=== PATIENT | female | born 1960 | race Caucasian/White ===

== ENCOUNTER 2020-01-25 01:53 | Emergency (ER) | payer MEDICARE, MEDICAID ==
[~2020-01-25] VITALS: Ht 165.1 cm; Wt 77.1 kg
[2020-01-25 02:37] LABS: Basophils # (auto) 0 10 ^3/uL (0-0.2); Basophils % (auto) 0.6 % (0.0-2.0); Eosinophils # (auto) 0.4 10 ^3/uL (0-0.8); Eosinophils % (auto) 5.3 % (0.0-7.0); Hematocrit 36.5 % (36.0-46.0); Hemoglobin 12.5 g/dL (12.2-16.2); Lymphocytes # (auto) 2.7 10 ^3/uL (0.4-5.4); Lymphocytes % (auto) 36.3 % (10.0-50.0); Mean Corpuscular Hemoglobin 31.2 pg (28.0-32.0); Mean Corpuscular Hgb Conc. 34.2 g/dL (32.0-36.0); Mean Corpuscular Volume 91.2 fL (80.0-100.0); Monocytes # (auto) 0.5 10 ^3/uL (0-1.3); Monocytes % (auto) 7.4 % (0.0-12.0); Neutrophils # (auto) 3.7 10 ^3/uL (1.6-8.6); Neutrophils % (auto) 50.4 % (37.0-80.0); Nucleated Red Blood Cells % 0.1 %; Platelet Count (auto) 222 10^3/uL (140-450); White Blood Cell 7.4 10^3/uL (4.4-10.8)
[2020-01-25 02:52] LABS: INR 0.97 (0.9-1.15); Partial Thromboplastin Time 24.9 sec (23.0-31.2)
[2020-01-25 02:54] LABS: Albumin 3.2 g/dL (3.4-5.0); Anion Gap 2 (5-15); Blood Urea Nitrogen 13 mg/dL (7-18); Calcium 8.5 mg/dL (8.5-10.1); Carbon Dioxide 28 mmol/L (21-32); Chloride 111 mmol/L (98-107); Glucose 139 mg/dL (74-106); Potassium 5.2 mmol/L (3.5-5.1); Sodium 141 mmol/L (136-145)
[2020-01-25 03:01] LABS: Alanine Aminotransferase 29 U/L (13-56); Alkaline Phosphatase 169 U/L (45-117); Aspartate Aminotransferase 25 U/L (15-37); BUN/Creatinine Ratio 12.1; Bilirubin, Total 0.2 mg/dL (0.2-1.0); GFR African American 68 mL/min; GFR Non-African American 56 mL/min; Total Protein 6.5 g/dL (6.4-8.2)
[2020-01-25 04:00] VITALS: BP 112/66
== END 2020-01-25 05:34 | disposition home or self-care (01) ==
LOC: ER 01:56
DX: R07.89 Other chest pain (principal); K21.0 Gastro-esophageal reflux disease with esophagitis; G89.29 Other chronic pain; M54.5 Low back pain; I10 Essential (primary) hypertension; E78.5 Hyperlipidemia, unspecified; F17.210 Nicotine dependence, cigarettes, uncomplicated
CPT/HCPCS: 36415; 71045; 80053; 83880; 84484; 85025; 85379; 85610; 85730

== ENCOUNTER 2021-06-25 13:28 | Emergency (ER) | payer MEDICARE, MEDICAID ==
[~2021-06-25] VITALS: Ht 167.6 cm; Wt 68.0 kg
[2021-06-25 15:00] LABS: Albumin 2.8 g/dL (3.4-5.0); BUN/Creatinine Ratio 13.6; Potassium 3.4 mmol/L (3.5-5.1)
[2021-06-25 15:03] LABS: Bilirubin, Total 0.3 mg/dL (0.2-1.0); Total Protein 6.1 g/dL (6.4-8.2)
[2021-06-25 15:05] LABS: Basophils # (auto) 0.1 10 ^3/uL (0-0.2); Basophils % (auto) 1.3 % (0.0-2.0); Eosinophils # (auto) 0 10 ^3/uL (0-0.8); Eosinophils % (auto) 0.5 % (0.0-7.0); Hematocrit 36.2 % (36.0-46.0); Hemoglobin 12.2 g/dL (12.2-16.2); Lymphocytes # (auto) 0.6 10 ^3/uL (0.4-5.4); Lymphocytes % (auto) 14.7 % (10.0-50.0); Mean Corpuscular Hemoglobin 30.3 pg (28.0-32.0); Mean Corpuscular Hgb Conc. 33.8 g/dL (32.0-36.0); Mean Corpuscular Volume 89.6 fL (80.0-100.0); Monocytes # (auto) 0.3 10 ^3/uL (0-1.3); Monocytes % (auto) 7.7 % (0.0-12.0); Neutrophils # (auto) 3.3 10 ^3/uL (1.6-8.6); Neutrophils % (auto) 75.8 % (37.0-80.0); Nucleated Red Blood Cells % 0.2 %; Red Blood Cells 4.04 10^6/uL (4.0-5.20); Red Cell Distribution Width 13.4 % (11.8-14.3); White Blood Cell 4.3 10^3/uL (4.4-10.8)
[2021-06-25] MEDS ORDERED: ASPirin 325 MG TAB PO ONE (20:00)
[2021-06-25] MEDS ORDERED: FAMOTIDINE 20 MG TAB PO ONE (21:00)
[2021-06-25] MEDS ORDERED: ONDANSETRON HCL 4 MG/2 ML VIAL IV ONE (21:00)
[2021-06-25] MEDS ORDERED: ACETAMINOPHEN 325 MG TAB PO ONE (21:00)
[2021-06-25] MEDS ORDERED: KETOROLAC TROMETH 30 MG/ML 1ML VIAL IV ONE (21:00)
[2021-06-25] MEDS ORDERED: ALUM & MAG HYDROX-SIMETH LIQ(MAALOX) 30 ML PO ONE (21:00)
[2021-06-25 21:13] LABS: Urine Bacteria MANY /hpf (None Seen); Urine Blood Negative /uL (Negative); Urine Hyaline Cast FEW /lpf (0 - 2); Urine Mucus FEW (None Seen); Urine Specific Gravity 1.022 (1.001-1.035); Urine WBC 6 /hpf (0 - 5)
[2021-06-25] MEDS ORDERED: POTASSIUM EFFERVESENT TAB 25 MEQ PO ONE (21:15)
[2021-06-25 22:12] VITALS: BP 117/78
[2021-06-25] MEDS ORDERED: CEPH-322 PO (23:10)
== END 2021-06-25 23:34 | disposition home or self-care (01) ==
LOC: ER 13:28 → EDBD 13:28 → ER 23:34
DX: U07.1 COVID-19 (principal); R19.7 Diarrhea, unspecified; N39.0 Urinary tract infection, site not specified; I10 Essential (primary) hypertension; E78.5 Hyperlipidemia, unspecified; F17.210 Nicotine dependence, cigarettes, uncomplicated; Z86.73 Personal history of transient ischemic attack (TIA), and cerebral infarction without residual deficits
CPT/HCPCS: 36415; 71045; 80053; 81001; 83690; 84484; 85025; 87426; 93005; 96374; 99285; J1885; J2405

== ENCOUNTER 2021-08-12 13:27 | Inpatient (IN) | payer MEDICARE, MEDICAID ==
[~2021-08-12] VITALS: Ht 152.4 cm; Wt 67.4 kg
[~2021-08-12 13:27] MED LIST: CEPH-322 PO
[2021-08-12] MEDS ORDERED: PROMETHAZINE HCL 25 MG/ML 1ML ONE (13:43)
[2021-08-12] MEDS ORDERED: PROMETHAZINE HCL 25 MG/ML 1ML IV ONE ×2 (14:00→22:00)
[2021-08-12 14:47] LABS: Basophils % (auto) 0.6 % (0.0-2.0); Lymphocytes % (auto) 10.7 % (10.0-50.0); Monocytes % (auto) 2.4 % (0.0-12.0); Neutrophils % (auto) 86.3 % (37.0-80.0); White Blood Cell 9.9 10^3/uL (4.4-10.8)
[2021-08-12 14:48] LABS: Basophils # (auto) 0.1 10 ^3/uL (0-0.2); Eosinophils # (auto) 0 10 ^3/uL (0-0.8); Hematocrit 40.9 % (36.0-46.0); Hemoglobin 13.8 g/dL (12.2-16.2); Lymphocytes # (auto) 1.1 10 ^3/uL (0.4-5.4); Mean Corpuscular Hemoglobin 30.3 pg (28.0-32.0); Mean Corpuscular Hgb Conc. 33.8 g/dL (32.0-36.0); Mean Corpuscular Volume 89.7 fL (80.0-100.0); Monocytes # (auto) 0.2 10 ^3/uL (0-1.3); Neutrophils # (auto) 8.6 10 ^3/uL (1.6-8.6); Red Blood Cells 4.56 10^6/uL (4.0-5.20); Red Cell Distribution Width 13.7 % (11.8-14.3)
[2021-08-12 14:52] LABS: Albumin 3.4 g/dL (3.4-5.0); Calcium 9.3 mg/dL (8.5-10.1); Potassium 4.4 mmol/L (3.5-5.1)
[2021-08-12 14:54] LABS: BUN/Creatinine Ratio 10.3
[2021-08-12 14:58] LABS: Bilirubin, Total 0.3 mg/dL (0.2-1.0); Total Protein 7.1 g/dL (6.4-8.2)
[2021-08-12 15:59] LABS: Lactic Acid w/Reflex 2.2 mmol/L (0.4-2.0)
[2021-08-12] MEDS ORDERED: LORazepam 2MG/ML-1ML VIAL IV ONE (17:30)
[2021-08-12] MEDS ORDERED: IOHEXOL 300 MG/ML 100ML BOTTLE IJ ONE (19:11)
[2021-08-12 20:31] LABS: Albumin 3.3 g/dL (3.4-5.0); BUN/Creatinine Ratio 10.8; Calcium 9.1 mg/dL (8.5-10.1); Potassium 3.5 mmol/L (3.5-5.1)
[2021-08-12 20:34] LABS: Bilirubin, Total 0.2 mg/dL (0.2-1.0); Total Protein 6.7 g/dL (6.4-8.2)
[2021-08-12] MEDS ORDERED: cefTRIAXone 1GM/50ML D5W 50 ML IV ONE (21:15)
[2021-08-12] MEDS ORDERED: ONDANSETRON HCL 4 MG/2 ML VIAL ONE (21:19)
[2021-08-12] MEDS ORDERED: ONDANSETRON HCL 4 MG/2 ML VIAL IV ONE (21:30)
[2021-08-12 22:16] LABS: Urine Bacteria FEW /hpf (None Seen); Urine Blood Negative /uL (Negative); Urine Mucus FEW (None Seen); Urine Specific Gravity > 1.055 (1.001-1.035); Urine WBC <1 /hpf (0 - 5)
[2021-08-12 22:28] LABS: Amphetamine Screen, Urine NEGATIVE (NEGATIVE); Barbiturate Scree,Urine NEGATIVE (NEGATIVE); Benzodiazephine Screen, Urine POSITIVE (NEGATIVE); Cannabinoid Screen, Urine NEGATIVE (NEGATIVE); Cocaine Screen, Urine NEGATIVE (NEGATIVE)
[2021-08-12 22:36] LABS: Opiate Scree,Urine POSITIVE (NEGATIVE); Phencyclidine Screen, Urine NEGATIVE (NEGATIVE)
[2021-08-12 23:23] VITALS: BP 119/64
[2021-08-13] MEDS: ONDANSETRON HCL 4 MG/2 ML VIAL IV PRN ×2 (01:36→09:45)
[2021-08-13 04:45] VITALS: BP 115/61
[2021-08-13 06:18] LABS: Basophils # (auto) 0 10 ^3/uL (0-0.2); Basophils % (auto) 0.3 % (0.0-2.0); Eosinophils # (auto) 0 10 ^3/uL (0-0.8); Hematocrit 36.3 % (36.0-46.0); Hemoglobin 12.5 g/dL (12.2-16.2); Lymphocytes # (auto) 1.6 10 ^3/uL (0.4-5.4); Lymphocytes % (auto) 12.5 % (10.0-50.0); Mean Corpuscular Hemoglobin 30.3 pg (28.0-32.0); Mean Corpuscular Hgb Conc. 34.4 g/dL (32.0-36.0); Mean Corpuscular Volume 88.1 fL (80.0-100.0); Monocytes # (auto) 0.5 10 ^3/uL (0-1.3); Monocytes % (auto) 3.9 % (0.0-12.0); Neutrophils # (auto) 10.6 10 ^3/uL (1.6-8.6); Neutrophils % (auto) 83.3 % (37.0-80.0); Nucleated Red Blood Cells % 0.1 %; Red Blood Cells 4.12 10^6/uL (4.0-5.20); Red Cell Distribution Width 13.9 % (11.8-14.3); White Blood Cell 12.7 10^3/uL (4.4-10.8)
[2021-08-13 06:30] LABS: Calcium 9.5 mg/dL (8.5-10.1); Potassium 3.9 mmol/L (3.5-5.1)
[2021-08-13 06:33] LABS: BUN/Creatinine Ratio 11.4
[2021-08-13 09:00] VITALS: BP 101/60
[2021-08-13] MEDS: cefTRIAXone 1GM/50ML D5W 50 ML IV SCH (09:22)
[2021-08-13] MEDS: ENOXAPARIN SOD 40 MG/0.4 ML SYRINGE SC SCH (09:23)
[2021-08-13] MEDS ORDERED: PHENYTOIN SODIUM 100 MG CAP PO SCH (10:00)
[2021-08-13] MEDS ORDERED: PANTOPRAZOLE 40 MG/10 ML VIAL INJ IV ONE (11:00)
[2021-08-13] MEDS ORDERED: PHENYTOIN IV DILANTIN 500 MG in SODIUM CHL 0.9% 100 ML IV ONE (11:00)
[2021-08-13 12:53] VITALS: BP 104/48
[2021-08-13] MEDS ORDERED: SOD CHL 0.45% WITH 20MEQ KCL 1,000 ML IV SCH (13:15)
[2021-08-13] MEDS: metroNIDAZOLE 500MG/100ML 100 ML IV SCH ×2 (15:43→22:41)
[2021-08-13 17:00] VITALS: BP 115/48
[2021-08-13] MEDS: SUCRALFATE 1 GM/10 ML ORAL SUSP PO SCH ×2 (17:29→22:40)
[2021-08-13] MEDS: MORPHINE SULFATE INJECTION 2 MG/ML SYRG IV PRN (17:30)
[2021-08-13] MEDS: PROMETHAZINE HCL 25 MG/ML 1ML IV PRN (18:30)
[2021-08-13] MEDS ORDERED: PHE100C PO (19:04)
[2021-08-13] MEDS ORDERED: PREG150C PO (19:08)
[2021-08-13] MEDS ORDERED: LEVO100T8 PO (19:08)
[2021-08-13] MEDS ORDERED: ALPR0.254 PO (19:08)
[2021-08-13] MEDS ORDERED: DULO60CA PO (19:08)
[2021-08-13] MEDS ORDERED: ATO40T PO (19:08)
[2021-08-13] MEDS: SOD CHL 0.45% WITH 20MEQ KCL 1,000 ML IV SCH (20:00)
[2021-08-13 22:00] VITALS: BP 123/76
[2021-08-13] MEDS: PHENYTOIN IV DILANTIN 200 MG in SODIUM CHL 0.9% 50 ML IV SCH ×2 (22:00→22:42)
[2021-08-13] MEDS ORDERED: PHENYTOIN IV DILANTIN 300 MG in SODIUM CHL 0.9% 50 ML IV SCH (22:00)
[2021-08-13] MEDS ORDERED: TEMAZEPAM 15 MG CAP PO ONE (22:30)
[2021-08-13] MEDS: PANTOPRAZOLE 40 MG/10 ML VIAL INJ IV SCH (22:41)
[2021-08-13 22:57] VITALS: BP 85/49
[2021-08-14] MEDS: MORPHINE SULFATE INJECTION 2 MG/ML SYRG IV PRN ×4 (00:21→15:21)
[2021-08-14] MEDS: PROMETHAZINE HCL 25 MG/ML 1ML IV PRN (02:12)
[2021-08-14 05:32] VITALS: BP 113/63
[2021-08-14] MEDS: metroNIDAZOLE 500MG/100ML 100 ML IV SCH (06:30)
[2021-08-14] MEDS: SUCRALFATE 1 GM/10 ML ORAL SUSP PO SCH (06:31)
[2021-08-14] MEDS ORDERED: diphenhdrAMINE HCL 50 MG/1 ML VL ONE (08:23)
[2021-08-14] MEDS ORDERED: SODIUM CHLORIDE LOCK 10 ML ONE (08:23)
[2021-08-14] MEDS ORDERED: LIDOCAINE VISCOUS 2% 15ML UD ONE (08:23)
[2021-08-14 09:00] VITALS: BP 118/67
[2021-08-14] MEDS: cefTRIAXone 1GM/50ML D5W 50 ML IV SCH (09:00)
[2021-08-14] MEDS: SOD CHL 0.45% WITH 20MEQ KCL 1,000 ML IV SCH (09:20)
[2021-08-14] MEDS ORDERED: PANTOPRAZOLE 40 MG/10 ML VIAL INJ IV SCH (10:00)
[2021-08-14] MEDS ORDERED: STERILE WATER 10 ML ONE (10:48)
[2021-08-14 10:49] LABS: INR 1.01 (0.9-1.15)
[2021-08-14] MEDS: PANTOPRAZOLE 40 MG/10 ML VIAL INJ IV SCH (11:02)
[2021-08-14] MEDS: ENOXAPARIN SOD 40 MG/0.4 ML SYRINGE SC SCH (11:02)
[2021-08-14] MEDS: MIDAZOLAM HCL 5 MG/ML-1ML VIAL ONE ×2 (12:52→12:55)
[2021-08-14] MEDS: fentaNYL CITRATE 100 MCG/2 ML VL ONE ×2 (12:52→12:55)
[2021-08-14 13:00] VITALS: BP 121/72
[2021-08-14] MEDS: PHENYTOIN IV DILANTIN 200 MG in SODIUM CHL 0.9% 50 ML IV SCH ×2 (15:23→16:19)
[2021-08-14 17:00] VITALS: BP 133/65
[2021-08-14] MEDS: HYDROcodone-ACET 7.5/325MG TAB PO PRN (21:59)
[2021-08-14] MEDS: PHENYTOIN SODIUM 100 MG CAP PO SCH (21:59)
[2021-08-14 22:00] VITALS: BP 107/59
[2021-08-15] MEDS ORDERED: traZODone HCL 50 MG TAB PO ONE (00:45)
[2021-08-15] MEDS: SOD CHL 0.45% WITH 20MEQ KCL 1,000 ML IV SCH (01:53)
[2021-08-15] MEDS: PANTOPRAZOLE 40 MG/10 ML VIAL INJ IV SCH ×3 (01:53→21:55)
[2021-08-15] MEDS: MORPHINE SULFATE INJECTION 2 MG/ML SYRG IV PRN ×4 (01:54→18:31)
[2021-08-15 05:00] VITALS: BP 124/66
[2021-08-15 08:58] LABS: Albumin 3.1 g/dL (3.4-5.0); BUN/Creatinine Ratio 7.5; Bilirubin, Total 0.3 mg/dL (0.2-1.0); Calcium 8.4 mg/dL (8.5-10.1); Total Protein 6.3 g/dL (6.4-8.2)
[2021-08-15 09:00] VITALS: BP 114/59
[2021-08-15 09:02] LABS: Potassium 2.9 mmol/L (3.5-5.1)
[2021-08-15] MEDS ORDERED: POTASSIUM CHL 20 Meq TABLET PO ONE (09:15)
[2021-08-15] MEDS: POTASSIUM CHL 20MEQ/100ML 100 ML IV SCH ×2 (09:15→11:15)
[2021-08-15] MEDS: HYDROcodone-ACET 7.5/325MG TAB PO PRN ×3 (09:39→21:56)
[2021-08-15] MEDS: PHENYTOIN SODIUM 100 MG CAP PO SCH ×2 (09:40→21:55)
[2021-08-15] MEDS: ENOXAPARIN SOD 40 MG/0.4 ML SYRINGE SC SCH (09:40)
[2021-08-15 11:17] LABS: Basophils # (auto) 0 10 ^3/uL (0-0.2); Basophils % (auto) 0.7 % (0.0-2.0); Eosinophils # (auto) 0.1 10 ^3/uL (0-0.8); Eosinophils % (auto) 1.7 % (0.0-7.0); Hematocrit 35.2 % (36.0-46.0); Hemoglobin 12.1 g/dL (12.2-16.2); Lymphocytes # (auto) 1.8 10 ^3/uL (0.4-5.4); Mean Corpuscular Hgb Conc. 34.4 g/dL (32.0-36.0); Monocytes # (auto) 0.4 10 ^3/uL (0-1.3); Monocytes % (auto) 7.8 % (0.0-12.0); Neutrophils # (auto) 3.4 10 ^3/uL (1.6-8.6); Neutrophils % (auto) 58.8 % (37.0-80.0); Nucleated Red Blood Cells % 0.1 %; Red Blood Cells 4.05 10^6/uL (4.0-5.20); Red Cell Distribution Width 13.6 % (11.8-14.3); White Blood Cell 5.8 10^3/uL (4.4-10.8)
[2021-08-15 13:00] VITALS: BP 127/67
[2021-08-15 16:49] VITALS: BP 126/69
[2021-08-15 22:00] VITALS: BP 134/83
[2021-08-16] MEDS: MORPHINE SULFATE INJECTION 2 MG/ML SYRG IV PRN (00:10)
[2021-08-16 05:00] VITALS: BP 129/74
[2021-08-16] MEDS: HYDROcodone-ACET 7.5/325MG TAB PO PRN ×2 (05:17→11:15)
[2021-08-16 09:00] VITALS: BP 126/70
[2021-08-16] MEDS: PANTOPRAZOLE 40 MG/10 ML VIAL INJ IV SCH (10:00)
[2021-08-16] MEDS: PHENYTOIN SODIUM 100 MG CAP PO SCH (10:00)
[2021-08-16] MEDS: ENOXAPARIN SOD 40 MG/0.4 ML SYRINGE SC SCH (10:00)
[2021-08-16] MEDS ORDERED: PANT40TA2 PO (11:33)
[2021-08-16] MEDS ORDERED: HYDROcodone-ACET 10/325MG TAB PO PRN (11:45)
[2021-08-16 13:00] VITALS: BP 150/83
[2021-08-16] MEDS ORDERED: NITR100C6 PO (15:08)
[2021-08-16] MEDS ORDERED: POTASSIUM CHL 20 Meq TABLET PO ONE (15:15)
[2021-08-16] MEDS ORDERED: NITROFURANTOIN 100 mg CAP PO ONE (15:15)
[2021-08-16] MEDS ORDERED: ALPRAZolam 0.5 MG TAB PO ONE (16:00)
[2021-08-16 17:00] VITALS: BP 143/70
== END 2021-08-16 19:50 | disposition home health service (06) | DRG 378 ==
LOC: ER 13:27 → EDBD 13:27 → OVERFLOW 21:06 → WEST WING 23:10 → TELE-WESTW 08-14 02:18 → WEST WING 08-14 03:41 → TELE-WESTW 08-14 08:38 → WEST WING 08-15 03:24
PROVIDERS: ADMIT Nurse Practitioner; ATTEND Internal Medicine
PROC: 0DB68ZX Excision of Stomach, Via Natural or Artificial Opening Endoscopic, Diagnostic (ICD-10-PCS; principal; 2021-08-14 12:46)
DX: K29.71 Gastritis, unspecified, with bleeding (principal); N39.0 Urinary tract infection, site not specified; G40.909 Epilepsy, unspecified, not intractable, without status epilepticus; I10 Essential (primary) hypertension; R19.7 Diarrhea, unspecified; Z20.822 Contact with and (suspected) exposure to COVID-19; E87.6 Hypokalemia; B96.20 Unspecified Escherichia coli [E. coli] as the cause of diseases classified elsewhere; E78.5 Hyperlipidemia, unspecified; E03.9 Hypothyroidism, unspecified; Z86.73 Personal history of transient ischemic attack (TIA), and cerebral infarction without residual deficits; Z90.710 Acquired absence of both cervix and uterus
CPT/HCPCS: 36415; 70450; 70551; 71045; 74177; 76705; 80048; 80053; 80185; 80307; 81001; 82140; 83605; 83690; 83735; 84132; 84443; 84484; 85025; 85610; 85730; 86677; 87040; 87045; 87086; 87088; 87186; 87427; 87493; 93005; 95819; 96365; 96375; 96376; 97163; C9113; G0378; J0696; J2250; J2405; J3480; J3490

== ENCOUNTER 2021-10-08 21:17 | Emergency (ER) | payer MEDICARE, MEDICAID ==
[~2021-10-08] VITALS: Ht 152.4 cm; Wt 69.9 kg
[~2021-10-08 21:17] MED LIST changes: +ALPR0.254 PO; +ATO40T PO; -CEPH-322 PO; +DULO60CA PO; +LEVO100T8 PO; +NITR100C6 PO; +PANT40TA2 PO; +PHE100C PO; +PREG150C PO
[2021-10-09] MEDS ORDERED: HYDROcodone-ACET 5/325MG TAB PO ONE (04:00)
[2021-10-09 05:42] VITALS: BP 112/76
== END 2021-10-09 07:20 | disposition home or self-care (01) ==
LOC: EDBD 21:17 → ER 21:24
DX: S42.291A Other displaced fracture of upper end of right humerus, initial encounter for closed fracture (principal); S50.01XA Contusion of right elbow, initial encounter; S00.81XA Abrasion of other part of head, initial encounter; I10 Essential (primary) hypertension; E78.5 Hyperlipidemia, unspecified; E03.9 Hypothyroidism, unspecified; F17.210 Nicotine dependence, cigarettes, uncomplicated; Z79.899 Other long term (current) drug therapy; W01.0XXA Fall on same level from slipping, tripping and stumbling without subsequent striking against object, initial encounter; Y93.89 Activity, other specified; Y92.89 Other specified places as the place of occurrence of the external cause; Y99.8 Other external cause status
CPT/HCPCS: 73030; 73070